=== PATIENT | female | born 1955 | race Caucasian/White ===

== ENCOUNTER → 2021-06-24 09:52 | Outpatient (CLI) | payer BC, SELFPAY ==
--- NOTE | ~2021-06-24 | MR_ITS ---
EXAMINATION: MR lumbar spine wo con EXAM DATE: 06/24/2021 10:36 INDICATION: Persistent back pain lbp, left leg pain, left knee pain left foot pain x months. TECHNIQUE: Multi-sequential, multiplanar MR images of the lumbar spine were obtained without contrast . Sagittal T1, T2, T2 fat saturation images. Axial T2 weighted images. There is no prior study for comparison. FINDINGS: Incidental complex cystic mass in the left renal hilum suspicious for renal cell cancer. No evidence of retroperitoneal lymphadenopathy. There is 2 mm retrolisthesis L4 on L5. The vertebral bodies are otherwise aligned. Vertebral body and disc heights are well-maintained. There are no suspicious marrow signal abnormalities. The conus med ullaris terminates at the T12-L1 level and has normal signal intensity and morphology. Level by level evaluation: T12-L1: Disc does not extend beyond the endplate margin. Facet arthropathy: None. Neural foraminal stenosis: No stenosis. Central canal stenosis: No stenosis. L1-L2: Disc does not extend beyond the endplate margin. Facet arthropathy: Mild. Neural foraminal stenosis: No stenosis. Central canal stenosis: No stenosis. L2-L3: There is a mild diffuse disc bulge. Facet arthropathy: Mild. Neural foraminal stenosis: No stenosis. Central canal stenosis: No stenosis. L3-L4: There is a mild to moderate diffuse disc bulge. Facet arthropathy: Mild to moderate . Ligamentum flavum enlargement. Neural foraminal stenosis: Mild right. Central canal stenosis: Minimal. L4-L5: There is a mild to moderate diffuse disc bulge. Facet arthropathy: Mild to moderate. Neural foraminal stenosis: Mild to moderate bilateral. Central canal stenosis: Mild. L5-S1: Disc does not extend beyond the endplate margin. Facet arthropathy: Mild. Neural foraminal stenosis: No stenosis. Central canal stenosis: No stenosis. IMPRESSION: 1. Complex cystic left renal mass; CT abdomen with contrast, consult indicated. 2. Mild lumbar spondylosis. Reviewed, dictated and finalized at location A. IMPRESSION: 1. Complex cystic left renal mass; CT abdomen with contrast, consult indica jocelin. 2. Mild lumbar spondylosis.
== END ==
PROVIDERS: PCP Internal Medicine; Visit Provider Internal Medicine
DX: M54.9 Dorsalgia, unspecified (principal); N28.89 Other specified disorders of kidney and ureter; M47.816 Spondylosis without myelopathy or radiculopathy, lumbar region
CPT/HCPCS: 72148

== ENCOUNTER → 2021-06-29 08:10 | Outpatient (CLI) | payer BC, SELFPAY ==
--- NOTE | ~2021-06-29 | CT_ITS ---
EXAMINATION: CT abdomen pelvis w con INDICATION: Left kidney mass TECHNIQUE: Computed tomographic images of the abdomen and pelvis were obtained after the administrati on of 100 cc of Omnipaque 350 intravenous contrast. The dose-length product (DLP) was 502.13 mGy-cm. Automated exposure control and iterative reconstruction technique were employed. COMPARISON: MRI, 06/24/2021 FINDINGS: Minimal dependent atelectasis is present in the lung bases. The heart size is normal. Cysts of the liver measure up to 6 mm in the right hepatic lobe. There is a small sliding hiatal hernia. P unctate calcifications in an otherwise normal spleen likely represent healed granulomatous disease. T he gallbladder and adrenal glands are normal. There appears to be a 6 mm cystic lesion in the uncinat e process of the pancreas. There is a 3.5 x 2.8 cm mixed attenuation mass of the left kidney extendin g into the renal pelvis. The renal veins are displaced by the mass but otherwise appear normal. Ther e is a 1.3 cm cyst in the upper pole of the right kidney. No pathologically enlarged abdominal or pel claudio lymph nodes are identified. There is no free intraperitoneal gas or evidence of bowel obstruction . There are multiple phleboliths of the pelvis. There is mild lumbar spondylosis. IMPRESSION: 1. 3.5 cm left kidney mass consistent with renal cell carcinoma. 2. 6 mm cystic lesion in the uncinate process of pancreas. The differential diagnosis includes pseudo cyst, intraductal papillary mucinous neoplasm (IPMN), mucinous cystic neoplasm (MCN), and the less co mmon serous cystadenoma and neuroendocrine tumor. Correlate for history of pancreatitis. Follow-up CT or MRI without and with contrast in two years is recommended. Reviewed, dictated and finalized at location A. IMPRESSION: 1. 3.5 cm left kidney mass consistent with renal cell carcinoma. 2. 6 mm cystic lesion in the uncinate process of pancreas. The differential aamir gnosis includes pseudocyst, intraductal papillary mucinous neoplasm (IPMN), muc inous cystic neoplasm (MCN), and the less common serous cystadenoma and neuroen docrine tumor. Correlate for history of pancreatitis. Follow-up CT or MRI without and with contrast in two years is recommended.
[2021-06-29 08:31] LABS: Estimated Glomerular Filt Rate > 60
== END ==
PROVIDERS: PCP Internal Medicine; Visit Provider Internal Medicine
DX: K86.2 Cyst of pancreas (principal); N28.9 Disorder of kidney and ureter, unspecified
CPT/HCPCS: 74177; Q9967